=== PATIENT | female | born 1975 | race Caucasian/White ===

== ENCOUNTER 2017-01-16 13:17 | Emergency (ER) | payer OTHER ==
[2017-01-16 13:35] VITALS: TEMP 99.1; BMI 35.4
[2017-01-16] MEDS ORDERED: ONDANSETRON 4 MG/2 ML VIAL IVPUSH ONE (13:59)
[2017-01-16] MEDS ORDERED: morphine CARPU-JECT 4 MG/1 ML DISP.SYRIN IVPUSH ONE (13:59)
[2017-01-16] MEDS ORDERED: SODIUM CHLORIDE 1,000 ML IV STA (13:59)
--- NOTE | 2017-01-16 13:59 | PDOC ---
History of Present Illness - General Chief Complaint: Pain, Acute Stated Complaint: ABD PAIN Time Seen by Provider: 01/16/17 13:39 - History of Present Illness Initial Comments: 01/16/17 13:54 41 yo with h/o TIA, and thyroid disorder who presents with abdominal pain. Pt. reports new onset abdominal pain of 48 hour duration beginning evening ( 01/14). Pt. states that pain is diffuse, crampy, sharp, and shoots throughout abdomen and pelvis. Described pain as worse in epigastrum. Pain has progressively became unremitting and increased in severity. Reports 4 episodes of non biliary emesis Monday. Denies hematemesis. Endorses diarrhea of 48 hours duration with no blood visualized in stool. Also complains of reproducible left shoulder pain/soreness of 48 hours duration. Denies chest pain , SOB, weakness, lightheadedness, urinary frequency/hesitancy, vaginal discharge , vaginal bleeding, or dysuria. Denies recent travels ( arrived from [facility] to [place] in early November). States that she has had IUD for 6 years and supposed to have IUD removed last year, but lost to follow up. Also states that she was scheduled for holter monitoring but lost to follow up. Denies h/o abdominal surgery. Past History - Past Medical History Allergies/Adverse Reactions: Allergies Allergy/AdvReac Type Severity Reaction Status Date / Time No Known Allergies Allergy Verified 01/16/17 13:31 Home Medications: Ambulatory Orders Ciprofloxacin [Cipro (Restricted To Id)] 500 mg PO BID #20 tablet MDD 2 Pills Metronidazole [Flagyl -] 500 mg PO TID #30 tablet MDD 3 Pills 01/16/17 Hypercholesterolemia: Yes Thyroid Disease: Yes Other medical history: edema - Immunization History Immunization Up to Date: Yes - Psycho/Social/Smoking Cessation Hx Suicidal Ideation: No Smoking History: Never smoked Information on smoking cessation initiated: No Hx Alcohol Use: No Drug/Substance Use Hx: No Review of Systems - Review of Systems Comments:: 01/16/17 14:03 GENERAL/CONSTITUTIONAL: No fever or chills. No weakness. HEAD, EYES, EARS, NOSE AND THROAT: No change in vision. No ear pain or discharge. No sore throat.- CARDIOVASCULAR: No chest pain or shortness of breath RESPIRATORY: No cough, wheezing, or hemoptysis. GASTROINTESTINAL: + nausea, and vomiting,+ diarrhea . GENITOURINARY: No dysuria, frequency, or change in urination. MUSCULOSKELETAL: No joint or muscle swelling or pain. No neck or back pain. SKIN: No rash NEUROLOGIC: No headache, vertigo, loss of consciousness, or change in strength/ sensation. ENDOCRINE: No increased thirst. No abnormal weight change HEMATOLOGIC/LYMPHATIC: No anemia, easy bleeding, or history of blood clots. ALLERGIC/IMMUNOLOGIC: No hives or skin allergy. *Physical Exam - Vital Signs Last Vital Signs Temp Pulse Resp BP Pulse Ox 99.1 F 84 18 114/79 99 01/16/17 13:31 01/16/17 13:31 01/16/17 13:31 01/16/17 13:31 01/16/17 13:31 - Physical Exam Comments: 01/16/17 14:05 GENERAL: Awake, alert, and fully oriented, in no acute distress HEAD: No signs of trauma, normocephalic, atraumatic EYES: PERRLA, EOMI, sclera anicteric, conjunctiva clear ENT: Auricles normal inspection, hearing grossly normal, nares patent, oropharynx clear without exudates. Moist mucosa NECK: Normal ROM, supple, no lymphadenopathy, JVD, or masses LUNGS: No distress, speaks full sentences, clear to auscultation bilaterally HEART: Regular rate and rhythm, normal S1 and S2, no murmurs, rubs or gallops, peripheral pulses normal and equal bilaterally. ABDOMEN: Soft, diffusely ttp with increased epigastric ttp. normoactive bowel sounds. No guarding, no rebound. No masses. Absent CVA ttp. Neg molina sign EXTREMITIES: Normal inspection, Normal range of motion, no edema. No clubbing or cyanosis. SKIN: Warm, Dry, normal turgor, no rashes or lesions noted. ED Treatment Course - LABORATORY CBC & Chemistry Diagram: 01/16/17 14:24 01/16/17 14:24 Medical Decision Making - Medical Decision Making 01/16/17 14:26 41 yo with h/o TIA, and thyroid disorder who presents with abdominal pain. Pt. reports new onset abdominal pain of 48 hour duration beginning Monday evening ( 01/14). Diffuse crampy abdominal pain with epigastrum predominance. Pain has progressively became unremitting and increased in severity. 4 episodes of non biliary emesis and diahrrea. Physical exam reveals diffuse ttp. Pt. hemodynamically stable. DDx: Gastroenteritis, cholelithiasis, choledochilithiasis, ED Course: CBC, CMP, UA, HCG EKG TSH 01/16/17 14:31 Morphine, Zofran 1 L NS 01/16/17 14:36 CBC, CMP, UA Unremarkable Ultrasound RUQ: Unremarkable TSH: 0.25 01/16/17 16:37 UA: Neg 01/16/17 18:41 CT Abdomen: colonic nondistension. Subtle diffuse infectious vs. inflammatory colitis. 01/16/17 18:48 Discussed with patient findings on CT abdomen. Advised to f/u with GI to investigate cause of colitis. Adivsed to take cipro/flagyl as perscribed. *DC/Admit/Observation/Transfer Diagnosis at time of Disposition: Colitis - Discharge Dispostion Disposition: HOME Condition at time of disposition: Stable Admit: No - Prescriptions Prescriptions: Ciprofloxacin [Cipro (Restricted To Id)] 500 mg PO BID #20 tablet MDD 2 Pills Metronidazole [Flagyl -] 500 mg PO TID #30 tablet MDD 3 Pills - Referrals Referrals: Charlie Brink [Primary Care Provider] - - Patient Instructions Additional Instructions: Please return to ED if you experience blood in stool, worsening abdominal pain, fevers/chills, or worsening symptoms. Please follow up with one of the GI physicians provided in the documentation.
[2017-01-16] MEDS ORDERED: morphine CARPU-JECT 4 MG/1 ML DISP.SYRIN ONE (14:07)
[2017-01-16] MEDS ORDERED: ONDANSETRON 4 MG/2 ML VIAL ONE (14:07)
[2017-01-16 14:42] LABS: BASOPHIL 0.3 % (0-2.0); EOSINOPHIL 0.5 % (0-4.5); MCH 30.2 pg (25.7-33.7); MCHC 33.1 g/dl (32.0-36.0); MEAN CELL VOLUME 91.1 fl (80-96); MEAN PLT VOLUME 8.4 fl (7.5-11.1); NEUTROPHILS 83.9 % (42.8-82.8); PLATELET COUNT 170 K/MM3 (134-434); RDW 13.6 % (11.6-15.6); WHITE BLOOD COUNT 6.9 K/mm3 (4.0-10.0)
[2017-01-16 15:06] LABS: URINE APPEARANCE SLCLOUDY; URINE BILIRUBIN NEGATIVE (NEGATIVE); URINE BLOOD NEGATIVE (NEGATIVE); URINE COLOR YELLOW; URINE GLUCOSE (UA) NEGATIVE (NEGATIVE); URINE KETONE NEGATIVE (NEGATIVE); URINE LEUK ESTERASE NEGATIVE (NEGATIVE); URINE NITRITE NEGATIVE (NEGATIVE); URINE PROTEIN NEGATIVE (NEGATIVE); URINE UROBILINOGEN NEGATIVE mg/dL (0.2-1.0)
[2017-01-16 15:08] LABS: ALBUMIN 3.9 g/dl (3.4-5.0); ANION GAP 5 (8-16); CALCIUM 8.1 mg/dL (8.5-10.1); CO2 29 mmol/L (21-32); GLUCOSE,RANDOM 81 mg/dL (74-106)
[2017-01-16 15:10] LABS: SGOT/AST 17 U/L (15-37); SGPT/ALT 21 U/L (12-78)
[2017-01-16 15:12] LABS: ALK PHOS 66 U/L (45-117); BILIRUBIN,TOTAL 0.4 mg/dL (0.2-1.0); CREATININE 0.7 mg/dL (0.55-1.02); TOT PROT 6.8 g/dl (6.4-8.2)
--- NOTE | 2017-01-16 17:36 | PDOC ---
Attending Attestation - Resident Resident Name: Antonio Chang - ED Attending Attestation I have performed the following: I have examined & evaluated the patient, The case was reviewed & discussed with the resident, I agree w/resident's findings & plan, Exceptions are as noted - HPI HPI: 01/16/17 17:32 41-year-old female with history of TIA and thyroid disorder presents with abdominal discomfort and pain. The patient patient reports 2 days of nausea vomiting and diarrhea. Started developing some upper abdominal pain and right- sided abdominal pain. Came into the ED for further evaluation. - Physicial Exam PE: 01/16/17 17:34 GENERAL: Awake, alert, and fully oriented, in no acute distress. HEAD: No signs of trauma EYES: PERRLA, EOMI, sclera anicteric, conjunctiva clear ENT: Auricles normal inspection, hearing grossly normal, nares patent, oropharynx clear without exudates. NECK: Normal ROM, supple, no lymphadenopathy, JVD, or masses LUNGS: Breath sounds equal, clear to auscultation bilaterally. No wheezes, and no crackles HEART: Regular rate and rhythm, normal S1 and S2, no murmurs, rubs or gallops ABDOMEN: + Epigastric, RUQ, RLQ tendernes to palpation. Soft. No guarding, no rebound. No masses EXTREMITIES: Normal range of motion, no edema. No clubbing or cyanosis. No cords, erythema, or tenderness NEUROLOGICAL: Cranial nerves II through XII grossly intact. Normal speech, normal gait SKIN: Warm, Dry, normal turgor, no rashes or lesions noted. - Medical Decision Making 01/16/17 17:35 Vital Signs Temp Pulse Resp BP Pulse Ox 99.1 F 84 18 114/79 99 01/16/17 13:31 01/16/17 13:31 01/16/17 13:31 01/16/17 13:31 01/16/17 13:31 Differential includes gastroenteritis versus biliary colic versus colitis versus appendicitis. We'll obtain labs, CAT scan and ultrasound and reassess. 01/16/17 18:50 CBC, BMP 01/16/17 14:24 01/16/17 14:24 CMP Sodium 139 mmol/L (136-145) 01/16/17 14:24 Potassium 4.3 mmol/L (3.5-5.1) 01/16/17 14:24 Chloride 105 mmol/L (98-107) 01/16/17 14:24 Carbon Dioxide 29 mmol/L (21-32) 01/16/17 14:24 Anion Gap 5 (8-16) L 01/16/17 14:24 BUN 9 mg/dL (7-18) 01/16/17 14:24 Creatinine 0.7 mg/dL (0.55-1.02) 01/16/17 14:24 Creat Clearance w eGFR > 60 (>60) 01/16/17 14:24 Random Glucose 81 mg/dL (74-106) 01/16/17 14:24 Calcium 8.1 mg/dL (8.5-10.1) L 01/16/17 14:24 Total Bilirubin 0.4 mg/dL (0.2-1.0) 01/16/17 14:24 AST 17 U/L (15-37) 01/16/17 14:24 ALT 21 U/L (12-78) 01/16/17 14:24 Alkaline Phosphatase 66 U/L (45-117) 01/16/17 14:24 Total Protein 6.8 g/dl (6.4-8.2) 01/16/17 14:24 Albumin 3.9 g/dl (3.4-5.0) 01/16/17 14:24 Lipase 151 U/L (73-393) 01/16/17 14:24 TSH 0.25 uIU/ml (0.358-3.74) L 01/16/17 14:24 Urine Test Results Urine Color Yellow 01/16/17 14:24 Urine Appearance Slcloudy 01/16/17 14:24 Urine pH 5.0 (5.0-8.0) 01/16/17 14:24 Ur Specific [place] 1.020 (1.005-1.025) 01/16/17 14:24 Urine Protein Negative (NEGATIVE) 01/16/17 14:24 Urine Glucose (UA) Negative (NEGATIVE) 01/16/17 14:24 Urine Ketones Negative (NEGATIVE) 01/16/17 14:24 Urine Blood Negative (NEGATIVE) 01/16/17 14:24 Urine Nitrite Negative (NEGATIVE) 01/16/17 14:24 Urine Bilirubin Negative (NEGATIVE) 01/16/17 14:24 Ur Leukocyte Esterase Negative (NEGATIVE) 01/16/17 14:[address] reviewed. Subtle colitis. Will prescribe cipro and flagyl. Pt to be instructed that she will need GI follow up for evaluation for potential IBD, crohn's, UC. Pt reports feeling better.
[2017-01-16 18:53] VITALS: BP 118/64; PULSE 80
--- NOTE | 2017-01-17 18:02 | EKG ---
Test Reason : Blood Pressure : / mmHG Vent. Rate : 082 BPM Atrial Rate : 082 BPM P-R Int : 158 ms QRS Dur : 084 ms QT Int : 366 ms P-R-T Axes : 028 042 -01 degrees QTc Int : 427 ms NORMAL SINUS RHYTHM BAESLINE ARTIFACTS NO PREVIOUS ECGS AVAILABLE REPEAT EKG IF CLINICALLY INDICATED Confirmed by ALIREZA STEPHENSON MD ([id number]) on 01/17/2017 6:02:00 PM Referred By: Confirmed By:ALIREZA STEPHENSON MD
== END 2017-01-16 19:21 | disposition home or self-care (01) ==
LOC: JER 13:17
PROC: 3E033NZ Introduction of Analgesics, Hypnotics, Sedatives into Peripheral Vein, Percutaneous Approach (ICD-10-PCS; principal; 2017-01-16)
PROC: 3E033GC Introduction of Other Therapeutic Substance into Peripheral Vein, Percutaneous Approach (ICD-10-PCS; 2017-01-16)
DX: K52.9 Noninfective gastroenteritis and colitis, unspecified (principal); E07.9 Disorder of thyroid, unspecified; Z86.73 Personal history of transient ischemic attack (TIA), and cerebral infarction without residual deficits
CPT/HCPCS: 36415; 74177-TC; 76705-TC; 80053; 81003; 83690; 84443; 84703; 85025; 93005; 93010; 99284-25

== ENCOUNTER 2017-10-22 21:52 | Emergency (ER) | payer OTHER ==
[2017-10-22 22:17] VITALS: TEMP 98.1
--- NOTE | 2017-10-23 00:57 | PDOC ---
History of Present Illness - General History Source: Patient Exam Limitations: No Limitations - History of Present Illness Initial Comments: 10/23/17 02:18 The patient is a 42 year old female with past medical history of margie disease, GERD and Hypercholesterolemia presents to the emergency department with dysphasia. The patient reports the symptoms initially presented w/ L. side neck swelling on Monday. The patient reports going to the [facility] and was prescribed steroids, with reported relief. The patient presents today reporting throat closing but reports she is able to eat and drink without difficulty. The patient reports she follows with Dr. Talavera [facility], who did a laryngoscopy and was prescribed omeprazole. Previous CAT scan shows asymmetric soft tissue fullness in the right tonsil base with recommended direct visualization. The patient was dx with post nasal drip in the past. Allergies: NKDA Social history: Current smoker. Social drinker. No recreational drug use. Surgical history: PCP: Dr. Charlie Brink. <Lisbeth Ahumada - Last Filed: 10/23/17 02:18> <Mariana Davis - Last Filed: 10/23/17 03:55> - General Chief Complaint: Dysphagia Stated Complaint: PCP SENT Time Seen by Provider: 10/22/17 22:12 Past History <Lisbeth Ahumada - Last Filed: 10/23/17 02:18> - Past Medical History COPD: No Hypercholesterolemia: Yes Thyroid Disease: Yes - Immunization History Immunization Up to Date: Yes - Suicide/Smoking/Psychosocial Hx Smoking History: Current every day smoker Have you smoked in the past 12 months: No Number of Cigarettes Smoked Daily: 10 Information on smoking cessation initiated: No Hx Alcohol Use: No Drug/Substance Use Hx: No Substance Use Type: None <Mariana Davis - Last Filed: 10/23/17 03:55> - Past Medical History Allergies/Adverse Reactions: Allergies Allergy/AdvReac Type Severity Reaction Status Date / Time No Known Allergies Allergy Verified 10/22/17 22:08 Home Medications: Ambulatory Orders NK [No Known Home Medication] 10/22/17 Review of Systems - Review of Systems Able to Perform ROS?: Yes Comments:: 10/23/17 02:20 CONSTITUTIONAL: Absent: fever, chills, diaphoresis, generalized weakness, malaise, loss of appetite HEENT: (+) dysphasia Absent: rhinorrhea, nasal congestion, throat pain, throat swelling, mouth swelling, ear pain, eye pain, visual Changes CARDIOVASCULAR: Absent: chest pain, syncope, palpitations, irregular heart rate, lightheadedness , peripheral edema RESPIRATORY: Absent: cough, shortness of breath, dyspnea with exertion, orthopnea, wheezing, stridor, hemoptysis GASTROINTESTINAL: Absent: abdominal pain, abdominal distension, nausea, vomiting, diarrhea, constipation, melena, hematochezia GENITOURINARY: Absent: dysuria, frequency, urgency, hesitancy, hematuria, flank pain, genital pain MUSCULOSKELETAL: Absent: myalgia, arthralgia, joint swelling SKIN: Absent: rash, itching, pallor HEMATOLOGIC/IMMUNOLOGIC: Absent: easy bleeding, easy bruising, lymphadenopathy, frequent infections ENDOCRINE: Absent: unexplained weight gain, unexplained weight loss, heat intolerance, cold intolerance NEUROLOGIC: Absent: headache, focal weakness or paresthesias, dizziness, unsteady gait, seizure, mental status changes, bladder or bowel incontinence PSYCHIATRIC: Absent: anxiety, depression, suicidal or homicidal ideation, hallucinations. <Lisbeth Ahumada - Last Filed: 10/23/17 02:18> *Physical Exam - Vital Signs Last Vital Signs Temp Pulse Resp BP Pulse Ox 98.1 F 68 20 132/77 100 10/22/17 22:08 10/22/17 22:08 10/22/17 22:08 10/22/17 22:08 10/22/17 22:08 - Physical Exam Comments: 10/23/17 02:19 GENERAL: Well developed, well nourished. Awake and alert. No acute distress. HEENT: (+) Enlarged neck. Doughy lymph nodes bilaterally. Oropharynx: Uvula midline w/o edema. no hypertrophy tonsils. Normocephalic, atraumatic. PERRLA, EOMI. No conjunctival pallor. Sclera are non- icteric. Moist mucous membranes. NECK: Supple. Full ROM. No JVD. Carotid pulses 2+ and symmetric, without bruits. No thyromegaly. No lymphadenopathy. CARDIOVASCULAR: Regular rate and rhythm. No murmurs, rubs, or gallops. Distal pulses are 2+ and symmetric. PULMONARY: No evidence of respiratory distress. Lungs clear to auscultation bilaterally. No wheezing, rales or rhonchi. ABDOMINAL: Soft. Non-tender. Non-distended. No rebound or guarding. No organomegaly. Normoactive bowel sounds. MUSCULOSKELETAL Normal range of motion at all joints. No bony deformities or tenderness. No CVA tenderness. EXTREMITIES: No cyanosis. No clubbing. No edema. No calf tenderness. SKIN: Warm and dry. Normal capillary refill. No rashes. No jaundice. NEUROLOGICAL: Alert, awake, appropriate. Cranial nerves 2-12 intact. No deficits to light touch and temperature in face, upper extremities and lower extremities. No motor deficits in the in face, upper extremities and lower extremities. Normoreflexic in the upper and lower extremities. Normal speech. Toes are down- going bilaterally. Gait is normal without ataxia. PSYCHIATRIC: Cooperative. Good eye contact. Appropriate mood and affect. <Lisbeth Ahumada - Last Filed: 10/23/17 02:18> - Vital Signs Last Vital Signs Temp Pulse Resp BP Pulse Ox 98.1 F 68 20 132/77 100 10/22/17 22:08 10/22/17 22:08 10/22/17 22:08 10/22/17 22:08 10/22/17 22:08 <Mariana Davis - Last Filed: 10/23/17 03:55> ED Treatment Course - LABORATORY CBC & Chemistry Diagram: 10/23/17 00:59 10/23/17 00:59 - ADDITIONAL ORDERS Additional order review: Laboratory Results 10/23/17 10/23/17 00:59 00:59 Sodium 141 Potassium 3.8 Chloride 106 Carbon Dioxide 26 Anion Gap 9 BUN 14 Creatinine 0.8 Creat Clearance w eGFR > 60 Random Glucose 89 Calcium 8.6 Total Bilirubin 0.3 D AST 13 L ALT 22 Alkaline Phosphatase 50 Total Protein 7.1 Albumin 3.9 Serum , Qual Negative 10/23/17 00:59 RBC 4.66 MCV 91.3 MCHC 33.5 RDW 13.9 MPV 9.7 D Neutrophils % 61.1 D Lymphocytes % 29.9 Monocytes % 7.2 Eosinophils % 0.9 Basophils % 0.9 - Medications Given in the ED: ED Medications Discontinued Medications Generic Name Dose Route Start Last Admin Trade Name Freq PRN Reason Stop Dose Admin Sodium Chloride 1,000 mls @ 1,000 mls/hr 10/23/17 00:59 10/23/17 01:05 Normal Saline - IV 10/23/17 01:58 1,000 mls/hr ASDIR STA Administration <Lisbeth Ahumada - Last Filed: 10/23/17 02:18> - LABORATORY CBC & Chemistry Diagram: 10/23/17 00:59 10/23/17 00:59 <Mariana Davis - Last Filed: 10/23/17 03:55> Medical Decision Making - Medical Decision Making 10/23/17 03:27 CAT scan findings show that the nasopharynx, oropharynx,Pharyngeal spaces, epiglottis larynx and vocal cords and normal. Cervical airways patent No cervical masses or lymphadenopathy. Parotid and submandibular glands are normal. Thyroid is unremarkable. No acute abnormalities of the neck. Part of the brain is included in the scan and there is a nonhemorrhagic left occipital infarct , indeterminate age. There is also question of disease in the cervical, right internal carotid artery. Discussion - she did state that she had a stroke when she was in her 30s and was told that she has high cholesterol but stopped taking her high cholesterol medicine long ago She had stroke in her thirties when she was living in [place] and did not tell her primary care physician in [facility] about this medical history Patient told to follow up with her primary care physician and I would recommend that she get vascular workup. Patient has no gross focal neural deficits. She has no problems eating or drinking currently -I reviewed the CAT scan findings and told her the importance of following up with her primary care physician and that she needs to have carotid Dopplers done , cholesterol level done, she should see a neurologist for feeling that she can' t swallow properly and she started having endoscopy to make sure she has no esophageal strictures I also told her that the fact that she's had a stroke at such a young age means she is predisposed to having another one 10/23/17 03:42 <Mariana Davis - Last Filed: 10/23/17 03:55> *DC/Admit/Observation/Transfer - Attestations Scribe Attestion: 10/23/17 02:20 Documentation prepared by Lisbeth Ahumada, acting as medical accounting clerk for Mariana Davis MD. <Lisbeth Ahumada - Last Filed: 10/23/17 02:18> <Mariana Davis - Last Filed: 10/23/17 03:55> Diagnosis at time of Disposition: Dysphagia Qualifiers: Dysphagia type: unspecified Qualified Code(s): R13.10 - Dysphagia, unspecified - Discharge Dispostion Disposition: HOME Condition at time of disposition: Stable - Referrals Referrals: Rafael Schmidt MD [Staff Physician] - Preston Massey MD [Staff Physician] - Chandan Waldrop MD [Staff Physician] - Charlie Brink [Non Staff, Medical] - - Patient Instructions Printed Discharge Instructions: DI for Esophageal Dysphagia Additional Instructions: You have a history of stroke in the past and it is very important you followup with Dr Brink and also have carotid dopplers done and your cholesterol checked Please follow up with a neurologist also
[2017-10-23] MEDS ORDERED: SODIUM CHLORIDE 1,000 ML IV STA (00:59)
[2017-10-23 01:14] LABS: BASO % 0.9 % (0-2.0); EOS % 0.9 % (0-4.5); HEMATOCRIT 42.5 % (32.4-45.2); HEMOGLOBIN 14.2 GM/dL (10.7-15.3); LYMPH % 29.9 % (8-40); MCH 30.5 pg (25.7-33.7); MCHC 33.5 g/dl (32.0-36.0); MEAN CELL VOLUME 91.3 fl (80-96); MEAN PLT VOLUME 9.7 fl (7.5-11.1); MONO % 7.2 % (3.8-10.2); NEUT % 61.1 % (42.8-82.8); PLATELET COUNT 231 K/MM3 (134-434); RBC 4.66 M/mm3 (3.60-5.2); RDW 13.9 % (11.6-15.6); WHITE BLOOD COUNT 11.4 K/mm3 (4.0-10.0)
[2017-10-23 01:39] LABS: ALBUMIN 3.9 g/dl (3.4-5.0); ALK PHOS 50 U/L (45-117); ANION GAP 9 (8-16); BILIRUBIN,TOTAL 0.3 mg/dL (0.2-1.0); BLOOD UREA NITROGEN 14 mg/dL (7-18); CALCIUM 8.6 mg/dL (8.5-10.1); CHLORIDE 106 mmol/L (98-107); CO2 26 mmol/L (21-32); CREATININE 0.8 mg/dL (0.55-1.02); GLUCOSE,RANDOM 89 mg/dL (74-106); POTASSIUM 3.8 mmol/L (3.5-5.1); SGOT/AST 13 U/L (15-37); SGPT/ALT 22 U/L (12-78); SODIUM 141 mmol/L (136-145); TOT PROT 7.1 g/dl (6.4-8.2)
[2017-10-23 03:50] VITALS: BP 122/76; PULSE 74
== END 2017-10-23 04:06 | disposition home or self-care (01) ==
LOC: JER 21:52
PROC: 3E0337Z Introduction of Electrolytic and Water Balance Substance into Peripheral Vein, Percutaneous Approach (ICD-10-PCS; principal; 2017-10-22)
DX: F17.200 Nicotine dependence, unspecified, uncomplicated (principal); E06.3 Autoimmune thyroiditis
CPT/HCPCS: 36415; 70491-TC; 80053; 84703; 85025; 96360; 99282-25; J7030

== ENCOUNTER 2018-03-27 17:22 | Emergency (ER) | payer OTHER ==
[2018-03-27 17:40] VITALS: BMI 35.2
--- NOTE | 2018-03-27 17:40 | PDOC ---
Rapid Medical Evaluation Chief Complaint: Chest Pain Time Seen by Provider: 03/27/18 17:37 Medical Evaluation: Allergies Allergy/AdvReac Type Severity Reaction Status Date / Time No Known Allergies Allergy Verified 03/27/18 17:37 I have performed a brief in-person evaluation of this patient. The patient presents with a chief complaint of: chest pain radiating to left arm. prior hx of stroke. Pertinent physical exam findings: I have ordered the following: ekg, labs, cxr The patient will proceed to the ED for further evaluation. Discharge Disposition - Diagnosis Chest pain - Referrals - Patient Instructions - Post Discharge Activity
--- NOTE | 2018-03-27 17:53 | PDOC ---
History of Present Illness - General Chief Complaint: Chest Pain Stated Complaint: CHEST PAIN Time Seen by Provider: 03/27/18 17:37 History Source: Patient - History of Present Illness Presenting Symptoms: Other (this afternoon) Timing/Duration: reports: constant Severity/Quality: reports: mild Past History - Past Medical History Allergies/Adverse Reactions: Allergies Allergy/AdvReac Type Severity Reaction Status Date / Time No Known Allergies Allergy Verified 03/27/18 17:37 Home Medications: Ambulatory Orders NK [No Known Home Medication] 10/22/17 COPD: No Hypercholesterolemia: Yes Thyroid Disease: Yes - Immunization History Immunization Up to Date: Yes - Suicide/Smoking/Psychosocial Hx Smoking History: Never smoked Have you smoked in the past 12 months: No Number of Cigarettes Smoked Daily: 10 Information on smoking cessation initiated: No Hx Alcohol Use: No Drug/Substance Use Hx: No Substance Use Type: None Review of Systems - Review of Systems Constitutional: No: Chills, Fever Respiratory: No: Cough, Shortness of Breath Cardiac (ROS): Yes: Chest Pain. No: Lightheadedness, Palpitations, Syncope ABD/GI: No: Nausea, Vomiting Neurological: Yes: Headache, Numbness, Tingling. No: Weakness *Physical Exam - Vital Signs Last Vital Signs Temp Pulse Resp BP Pulse Ox 97.9 F 72 16 124/75 98 03/27/18 17:37 03/27/18 17:37 03/27/18 17:37 03/27/18 17:37 03/27/18 17:37 - Physical Exam General Appearance: Yes: Appropriately Dressed. No: Apparent Distress HEENT: positive: Normal Voice Neck: positive: Tender (to L upper back and superior deltoid), Supple. negative : Decreased range of motion Respiratory/Chest: positive: Chest Tender (to left upper chest), Normal Breath Sounds. negative: Respiratory Distress Cardiovascular: positive: Regular Rate, S1, S2 Gastrointestinal/Abdominal: positive: Soft. negative: Tender Extremity: positive: Normal Inspection. negative: Pedal Edema Integumentary: positive: Dry, Warm Neurologic: positive: Fully Oriented, Alert, Normal Mood/Affect Heart Score/ECG Review - History History: Slightly suspicious - Electrocardiogram EKG: Normal - Age Age: </= 45 - Risk Factors Risk Factors Heart Score: Yes Hx Hypercholesterolemia Based on the list above the patient has:: 1-2 risk factors - Troponin Troponin: </= normal limit - Score Heart Score - Total: 1 - ECG Intrepretation Comment:: 03/27/18 18:30 EKG unremarkable and similar to EKG 04/30 ED Treatment Course - LABORATORY CBC & Chemistry Diagram: 03/27/18 17:55 03/27/18 18:01 - ADDITIONAL ORDERS Additional order review: Laboratory Results 03/27/18 03/27/18 18:11 18:01 Sodium 141 Potassium 4.0 Chloride 106 Carbon Dioxide 28 Anion Gap 7 L BUN 13 Creatinine 0.6 Creat Clearance w eGFR > 60 Random Glucose 66 L Calcium 8.1 L Total Bilirubin 0.3 AST 12 L ALT 20 Alkaline Phosphatase 60 Creatine Kinase 53 Troponin I < 0.02 Total Protein 7.1 Albumin 3.8 Urine HCG, Qual Negative 03/27/18 17:55 RBC 4.67 MCV 91.0 MCHC 33.3 RDW 13.2 MPV 7.5 D Neutrophils % 53.3 Lymphocytes % 34.8 Monocytes % 8.9 Eosinophils % 2.0 D Basophils % 1.0 - RADIOLOGY Radiology Studies Ordered: Category Date Time Status HEAD CT WITHOUT CONTRAST [CT] Stat CT Scan 03/27/18 18:24 Taken Medical Decision Making - Medical Decision Making 03/27/18 17:53 42 yo F, h/o HLD, TIA, GERD, hashimotos, here w/ CP. Pt reports having pain to back of neck several hrs ago that has since radiated to L chest and LUE w/ some numbness/tingling to b/l UEs. Describes CP as "sore" and constant but worse w/ ROM of LUE. No sob, diaphoresis, n/v. No h/o CAD and no stress test in past. No recent trauma. Also c/o intermittent "pounding" headaches x 2 weeks that self resolves. States " I usually never get headaches". No dizziness, visual changes or focal weakness See exam Atypical CP Possibly MSK given reproducible factor, unlikely dissection and PERCs out -ekg -cxr -serial trop REHMAN New onset x 2 weeks Neuro intact -CTH 03/27/18 18:32 03/27/18 18:43 Labs only remarkable for glucose of 66. Pt reports not eating much today as she was busy. Denies dizziness or weakness. Will give tray of food at this time and get FS. Will s/o to [facility] Ryan pending rpt trop at 12 midnight and if w/u neg, can be discharged to f/u with pmd *DC/Admit/Observation/Transfer Diagnosis at time of Disposition: Chest pain Qualifiers: Chest pain type: unspecified Qualified Code(s): R07.9 - Chest pain, unspecified - Referrals Referrals: Charlie Brink [Primary Care Provider] - - Patient Instructions - Post Discharge Activity
[2018-03-27 18:04] LABS: HEMATOCRIT 42.5 % (32.4-45.2); HEMOGLOBIN 14.1 GM/dL (10.7-15.3); LYMPH % 34.8 % (8-40); MCH 30.3 pg (25.7-33.7); MCHC 33.3 g/dl (32.0-36.0); MEAN PLT VOLUME 7.5 fl (7.5-11.1); MONO % 8.9 % (3.8-10.2); NEUT % 53.3 % (42.8-82.8); PLATELET COUNT 219 K/MM3 (134-434); RBC 4.67 M/mm3 (3.60-5.2); RDW 13.2 % (11.6-15.6); WHITE BLOOD COUNT 6.6 K/mm3 (4.0-10.0)
[2018-03-27 18:36] LABS: ALBUMIN 3.8 g/dl (3.4-5.0); ALK PHOS 60 U/L (45-117); ANION GAP 7 MMOL/L (8-16); BILIRUBIN,TOTAL 0.3 mg/dL (0.2-1); BLOOD UREA NITROGEN 13 mg/dL (7-18); CALCIUM 8.1 mg/dL (8.5-10.1); CHLORIDE 106 mmol/L (98-107); CO2 28 mmol/L (21-32); CREATININE 0.6 mg/dL (0.55-1.3); GLUCOSE,RANDOM 66 mg/dL (74-106); SGOT/AST 12 U/L (15-37); SGPT/ALT 20 U/L (13-61); SODIUM 141 mmol/L (136-145); TOT PROT 7.1 g/dl (6.4-8.2)
[2018-03-27] MEDS ORDERED: DEXTROSE 50%-WATER - 25 GM/50 ML VIAL IVPUSH ONE (18:43)
--- NOTE | 2018-03-27 21:01 | PDOC ---
*Physical Exam - Vital Signs Last Vital Signs Temp Pulse Resp BP Pulse Ox 97.9 F 72 16 124/75 98 03/27/18 17:37 03/27/18 17:37 03/27/18 17:37 03/27/18 17:37 03/27/18 17:37 - Physical Exam General Appearance: Yes: Appropriately Dressed Respiratory/Chest: positive: Chest Tender (+ producible chest pain), Lungs Clear , Normal Breath Sounds Gastrointestinal/Abdominal: positive: Normal Bowel Sounds, Soft Extremity: positive: Normal Capillary Refill, Normal Inspection, Normal Range of Motion Integumentary: positive: Normal Color, Dry, Warm Neurologic: positive: Fully Oriented, Alert, Normal Mood/Affect ED Treatment Course - LABORATORY CBC & Chemistry Diagram: 03/27/18 17:55 03/27/18 22:00 - ADDITIONAL ORDERS Additional order review: Laboratory Results 03/27/18 03/27/18 18:11 18:01 Sodium 141 Potassium 4.0 Chloride 106 Carbon Dioxide 28 Anion Gap 7 L BUN 13 Creatinine 0.6 Creat Clearance w eGFR > 60 Random Glucose 66 L Calcium 8.1 L Total Bilirubin 0.3 AST 12 L ALT 20 Alkaline Phosphatase 60 Creatine Kinase 53 Troponin I < 0.02 Total Protein 7.1 Albumin 3.8 Urine HCG, Qual Negative 03/27/18 17:55 RBC 4.67 MCV 91.0 MCHC 33.3 RDW 13.2 MPV 7.5 D Neutrophils % 53.3 Lymphocytes % 34.8 Monocytes % 8.9 Eosinophils % 2.0 D Basophils % 1.0 - Medications Given in the ED: ED Medications Discontinued Medications Generic Name Dose Route Start Last Admin Trade Name Halq PRN Reason Stop Dose Admin Dextrose 25 gm 03/27/18 18:43 03/27/18 19:30 D50w (Vial) - IVPUSH 03/27/18 18:44 Not Given NOW ONE Medical Decision Making - Medical Decision Making 03/27/18 22:45 troponin x 2 negative, patient has reproducible chest pain. will d/c home *DC/Admit/Observation/Transfer Diagnosis at time of Disposition: Costochondral chest pain Chest pain Qualifiers: Chest pain type: unspecified Qualified Code(s): R07.9 - Chest pain, unspecified - Discharge Dispostion Disposition: HOME - Prescriptions Prescriptions: Ibuprofen 600 mg PO BID PRN #20 tablet PRN Reason: Pain - Referrals Referrals: Charlie Brink [Primary Care Provider] - - Patient Instructions Printed Discharge Instructions: DI for Atypical Chest Pain Additional Instructions: you may take ibuprofen every 6 hours as needed for pain Additional Instructions: * Please call your personal physician to report your Emergency Department visit and to report your progress, if any. * If there is no improvement in symptoms in 2 days call your physician. * Return to the Emergency Department for any worsening symptoms. - Post Discharge Activity
[2018-03-27 22:38] LABS: GLUCOSE,RANDOM 88 mg/dL (74-106)
[2018-03-27 23:01] VITALS: BP 102/60; PULSE 67; TEMP 98.1
--- NOTE | 2018-03-28 11:34 | EKG ---
Test Reason : Blood Pressure : / mmHG Vent. Rate : 070 BPM Atrial Rate : 070 BPM P-R Int : 124 ms QRS Dur : 088 ms QT Int : 412 ms P-R-T Axes : 042 058 019 degrees QTc Int : 444 ms POOR DATA QUALITY, INTERPRETATION MAY BE ADVERSELY AFFECTED NORMAL SINUS RHYTHM NONSPECIFIC T WAVE ABNORMALITY ABNORMAL ECG WHEN COMPARED WITH ECG OF 22-APR-2017 10:53, NO SIGNIFICANT CHANGE WAS FOUND Confirmed by KYLAH WHITTAKER MD ([id number]) on 03/28/2018 11:33:45 AM Referred By: Confirmed By:KYLAH WHITTAKER MD
== END 2018-03-27 23:00 | disposition home or self-care (01) ==
LOC: JER 17:22
DX: M94.0 Chondrocostal junction syndrome [Tietze] (principal); R51 Headache; E78.00 Pure hypercholesterolemia, unspecified; E06.3 Autoimmune thyroiditis; E78.5 Hyperlipidemia, unspecified; K21.9 Gastro-esophageal reflux disease without esophagitis; Z86.73 Personal history of transient ischemic attack (TIA), and cerebral infarction without residual deficits
CPT/HCPCS: 36415; 70450-TC; 71046-TC-FY; 80053; 82550; 82947; 84484; 84703; 85025; 93005; 93010; 99284-25